=== PATIENT | male | born 1955 | race Caucasian/White ===

== ENCOUNTER 2023-06-16 09:21 | Emergency (ER) | payer OTHER ==
--- OUTSIDE RECORDS SUMMARY | 2023-06-16 09:23 | XMS REPORT | Continuity of Care Document ---
Author Name Unknown Address [address] [facility] [place] [address] [facility] thconnect Address [address] [facility] [place] [address] Care Team Providers Care Business Continuity Manager Name Role Phone ANATOLIY HAGEN Primary Care Physician Unavailab DR ANATOLIY Balderas Attending Clinician Unavailabl e [phone] Attending Clinician Unavailable IHDE_G Attending Clinician Unavailable DR ANATOLIY HAGEN Admitting Clinician Unavailabl e IHDE_G Admitting Clinician Unavailable Payers Payer Name Policy Type Policy Number Effective Date Expirati on Date Source [facility] - OP [id number] AARP/[facility] - OP [id number] A[employer]/[facility] - OP [id number] [facility] (MEDICARE REPLACEMENT/ADVANTAGE - PPO) [id number] Problems Condition Name Condition Details Condition Category Status Onset Date Resolution Date Last Treatment Date Treating Clinician Comments Source Diabetes mellitus Diabetes Mellitus Problem Active 04-14 00:00: 00 [facility] Allergies, Adverse Reactions, Alerts Allergy Name Allergy Type Status Severity Reaction(s) Onset Date Inactive Date Treating Clinician Comments Source Amoxicil david Allergy to substanc e Active [facility] Ampicill in Allergy to substanc e Active [facility] [place] INS Allergy to substanc e Active [facility] Social History Smoking Status Start Date Stop Date Source Unknown if ever smoked Former Smoker [facility] Medications Ordered Medication Name Filled Medication Name Start Date Stop Date Current Medication? Ordering Clinician Indication Dosage Frequency Signature (SIG) Comments Components Source Humulin N NPH U-100 Insulin (isophane susp) 100 unit/mL subcutaneou s INJECT 20 UNITS UNDER THE SKIN EVERY DAY Humulin N NPH U-100 Insulin (isophane susp) 100 unit/mL subcutaneou s INJECT 20 UNITS UNDER THE SKIN EVERY DAY No Humulin N NPH U-100 Insulin (isophane susp) 100 unit/mL subcutaneo us INJECT 20 UNITS UNDER THE SKIN EVERY DAY [facility] isosorbide mononitrate ER 30 mg tablet,exte nded release 24 hr TAKE 1 TABLET BY MOUTH EVERY DAY isosorbide mononitrate ER 30 mg tablet,exte nded release 24 hr TAKE 1 TABLET BY MOUTH EVERY DAY No isosorbide mononitrat e ER 30 mg tablet,ext ended release 24 hr TAKE 1 TABLET BY MOUTH EVERY DAY [facility] Vital Signs Vital Name Observation Time Observation Value Comments S ource BP Diastolic 2021-04-14 00:00:00 72 mm[Hg] [facility] Height 2021-04-14 00:00:00 67 [in_i] [facility] BMI (Body Mass Index) 2021-04-14 00:00:00 28.5 kg/m2 [facility] BP Systolic 2021-04-14 00:00:00 126 mm[Hg] [facility] Body Weight 2021-04-14 00:00:00 182.1 [lb_av] [facility] Plan of Care Planned Activity Planned Date Details Comments Source Diagnostic Test Pending 2021-04-14 00:00:00 noninvasive colorectal cancer DNA + occult blood screening, QL, stool [code = noninvasive colorectal cancer DNA + occult blood screening, QL, stool] [facility] Future Scheduled Test ALBUMIN(SERUM) [code = 91125-9] Future Scheduled Test BASIC PANEL [code = 66738-3] Future Scheduled Test MAGNESIUM [code = 72950-5] Future Scheduled Test TSH [code = 20696-1] Future Scheduled Test URIC ACID [code = 3084-1] Future Scheduled Test CREATININE-UR [code = 2160-0] Future Scheduled Test PROTEIN-URINE [code = 2885-2] Encounters Start Date/Time End Date/Time Encounter Type Admission Type Attending [facility] Facility Care Department Encounter ID Source 2022-08-04 07:43:59 Outpatient ANATOLIY HAGEN [id number] [facility] [id number] [facility] 2022-03-11 09:12:26 Outpatient ANATOLIY HAGEN [id number] [facility] [id number] [facility] 2021-12-10 09:50:37 Outpatient ANATOLIY HAGEN [id number] [facility] [id number] [facility] 2021-10-01 10:43:34 Outpatient ANATOLIY HAGEN [id number] [facility] [id number] [facility] 2021-07-22 08:05:59 Outpatient ANATOLIY HAGEN [id number] [facility] [id number] [facility] 2023-04-06 07:30:00 2023-04-06 07:30:00 Outpatient ANATOLIY HUNT [id number] [facility] [id number] [facility] 2023-04-06 07:30:00 2023-04-06 07:30:00 Outpatient [id number] 2023-04-06 07:30:00 2023-04-06 07:30:00 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 04/06/2023 SNOMED-CT 1.3.6.1.4 .[id number] 1.3.6.1.4.1 .09120 [id number] 2023-01-06 07:46:00 2023-01-06 07:46:00 Outpatient ANATOLIY HUNT [id number] [facility] [id number] [facility] 2023-01-06 07:46:00 2023-01-06 07:46:00 Outpatient [id number] 2022-09-29 07:53:00 2022-09-29 07:53:00 Outpatient ANATOLIY HUNT [id number] [facility] [id number] [facility] 2022-08-04 07:48:00 2022-08-04 07:48:00 Outpatient ANATOLIY HUNT [id number] [facility] [id number] [facility] 2022-05-10 08:55:00 2022-05-10 08:55:00 Outpatient ANATOLIY HUNT [id number] [facility] [id number] [facility] 2022-03-11 09:15:00 2022-03-11 09:15:00 Outpatient ANATOLIY HUNT [id number] [facility] [id number] [facility] 2021-12-10 09:51:00 2021-12-10 09:51:00 Outpatient ANATOLIY HUNT [id number] [facility] [id number] [facility] 2021-12-10 09:51:00 2021-12-10 09:51:00 Outpatient [id number] 2021-12-10 09:51:00 2021-12-10 09:51:00 Hypertensi ve chronic kidney disease with stage 1 through stage 4 chronic k 12/10/2021 SNOMED-CT 1.3.6.1.4 .[id number] 1.3.6.1.4.1 .11662 [id number] 2021-10-01 10:44:00 2021-10-01 10:44:00 Outpatient ANATOLIY HUNT [id number] [facility] [id number] [facility] 2021-07-22 08:07:00 2021-07-22 08:07:00 Outpatient ANATOLIY HUNT [id number] [facility] [id number] [facility] 2021-04-14 12:02:00 2021-04-14 12:02:00 Outpatient IHDE_G [facility] [id number] [facility] 2021-04-14 00:00:00 2021-04-14 00:00:00 Luis Buck MD: [address] [place] [id number] , Ph. [phone] [facility] General surgery [id number] [facility] 2021-04-09 04:42:00 2021-04-09 04:42:00 Outpatient IHDE_G [facility] [id number] [facility] Results Test Description Test Time Test Comments Results Result Co mments Source URIC [id number] 10:03:00* Test Item Value Reference Range Interpretation Comme nts URIC ACID (test code = 3084-1) 5.6 mg/dL 2.6-7.2 [id number] 10:03:00* Test Item Value Reference Range Interpretation Comme nts PHOSPHORUS (test code = 2777-1) 3.5 mg/dL 2.5-4.9 GLYCO [id number] 10:03:00* Test Item Value Reference Range Interpretation Comme nts GLYCO HGB (test code = 3432-2) 8.8 % 4.2-6.5 H [id number] 10:03:00* Test Item Value Reference Range Interpretation Comme nts TSH (test code = 63250-7) 1.38 uIU/mL 0.35-3.74 ALBUMIN(SERUM)2021-12-10 10:03:00* Test Item Value Reference Range Interpretation Comme nts ALBUMIN (test code = ALBUMIN) 3.5 g/dL 3.4-5 CBC W/AUTO [id number] 10:03:00* Test Item Value Reference Range Interpretation Comme nts WBC (test code = 6690-2) 5.1 K/uL 4.1-11 RBC (test code = 82714-8) 3.84 M/uL 4.2-5.8 L HEMOGLOBIN (test code = 717-9) 12.9 g/dL 13.4-17.4 L HEMATOCRIT (test code = 37366-9) 38.1 % 40-52 L MCV (test code = 787-2) 99 fL 82-96 H MCH (test code = 785-6) 33.6 pg 27-33 H MCHC (test code = MCHC) 34 g/dL 32-35 RDW (test code = 788-0) 12.1 % 11.6-16 PLATELETS (test code = 777-3) 258 K/uL 135-367 MPV (test code = 18280-7) 8.6 fL 6.9-9.8 %NEUT (test code = 770-8) 44.7 % 42.2-75.2 %LYMPH (test code = 736-9) 45 % 20-51 %MONO (test code = 5905-5) 6 % 2-15 %EOS (test code = 85318-2) 4 % 0-10 %BASO (test code = 31638-5) 1 % 0-2 MANUAL DIFF (test code = MAN UAL DIFF) NOT INDICATED RBC MORPH (test code = 6742-1) NOT INDICATED BASIC [id number] 10:03:00* Test Item Value Reference Range Interpretation Comme nts SODIUM (test code = 2951-2) 139 mmol/L 136-145 POTASSIUM (test code = POTASSIUM) 5.0 mmol/L 3.5-5.1 CHLORIDE (test code = 2075-0) 106 mmol/L 98-107 CO2 (test code = 1963-8) 25.7 mmol/L 21-32 ANION GAP (test code = ANION GAP) 7 GLUCOSE (test code = 2345-7) 196 mg/dL 74-106 H BUN (test code = 3091-6) 27 mg/dL 5-27 CREATININE (test code = 2160-0) 1.81 mg/dL 0.6-1.3 H BUN/CREAT (test code = BUN/CREAT) 15 CALCIUM (test code = 00904-7) 8.9 mg/dL 8.5-10.1 AGE (test code = AGE) 66 yrs AFR AMER GFR (test code = AF R AMER GFR) 46 mL/min NON-AA GFR (test code = NON- AA GFR) 38 mL/min CALCIUM [id number] 10:03:00CALCIUM, IONIZED 4.82 4.70-5.90URINALYSIS 2021-12-10 09:57:00SPEC SOURCE: CLEAN CATCH COLOR Yellow NORMAL: Straw 5778-6 LOINC CLARITY Clear NORMAL: Clear 5767-9 LOINC SPEC GRAVITY 1.025 1.005 - 1.020 5811-5 LOINC A pH 6.5 5.5 - 7.5 5803-2 LOINC GLUCOSE 1+NORMAL: Negative 5792-7 LOINC A BILIRUBIN Negative NORMAL: Negative 5770-3 LOINC KETONE Negative NORMAL: Negative 2514-8 LOINC PROTEIN 3+ NORMAL: Negative 67041-2 LOINC A NITRITE Negative NORMAL:Negative 5802-4 LOINC BLOOD Trace-lysed NORMAL: Negative 62785-9 LOINC LEUK EST Negative NORMAL: Negative 5799-2 LOINC UROBILINOGEN 0.2 0.2 - 1.0 mg/dL 61505-8 LOINC MICROSCOPIC See Below WBC None Seen NORMAL: None Seen 5821-4 LOINC RBC 1 - 3 NORMAL: None Seen 19502-0 LOINC EPITHELIAL Rare NORMAL: None Seen BACTERIA Rare/hpf NORMAL: None Seen 71468-3 LOINC MUCOUS NORMAL: None Seen 8247-9 LOINC CASTS CRYSTALS TRICHOMONAS NORMAL: None Seen 42346-3 LOINC YEAST NORMAL: None Seen 43026-8 LOINC SPERM NORMAL: None Seen 76275-1 LOINC CULTURE? Not Indicated
[2023-06-16 10:10] LABS: Absolute Basophils 0.1 K/uL (0-0.5); Absolute Eosinophils 0.1 K/uL (0-0.5); Absolute Lymphocytes (CBC) 1.3 K/uL (0.7-4.9); Absolute Monocytes 0.6 K/uL (0.1-1.3); Absolute Neutrophil 4.7 K/uL (1.8-8.0); Basophils % 1.2 % (0-1.3); Eosinophils % 1.4 % (0-4.4); Hematocrit 36.6 % (39.6-49.0); Hemoglobin 12.2 g/dL (13.6-17.9); Lymphocytes % 19.3 % (15.3-44.8); MCH 32.4 pg (27.0-35.0); MCHC 33.5 g/dL (32.0-36.0); MCV 96.9 fL (80-100); MPV 7.7 fL (7.6-11.3); Monocytes % 8.4 % (3.3-12.3); Neutrophils % 69.7 % (41.7-73.7); Platelets 285 thou/uL (152-406); RBC Red Blood Cell Count 3.78 M/uL (4.33-5.43); Red Cell Distribution Width 14.9 % (12.1-15.2)
--- NOTE | 2023-06-16 10:19 | RAD REPORT ---
EXAM DESCRIPTION: RAD - Chest Single View - 06/16/2023 10:05 am CLINICAL HISTORY: near syncope COMPARISON: No comparisons FINDINGS: Lines: None. Lungs: No evidence of edema or pneumonia. Pleural: No significant pleural effusions or pneumothorax. Cardiac: The heart size is within normal limits. Mediastinum: Within normal limits. Bones: No acute fractures. Other: None IMPRESSION: No acute cardiopulmonary disease.
[2023-06-16 10:24] LABS: PT Prothrombin Time 11.8 SECONDS (9.5-12.5); PTT, Activated Partial Thromb 31.6 SECONDS (24.3-36.9); Protime INR 1.07
[2023-06-16 10:30] LABS: SARS-CoV-2 Antigen CONTROL BLUE LINE VIS/BG OK; SARS-CoV-2 Antigen Rapid Res Negative (Negative)
[2023-06-16 10:31] LABS: Albumin 2.8 g/dL (3.4-5.0); Albumin/Globulin Ratio 0.8 (1.1-1.8); Bilirubin Direct 0.2 mg/dL (0-0.2); Bilirubin Indirect, Calculated 0.2 mg/dL (0.2-0.8); Bilirubin Total 0.4 mg/dL (0.2-1.0); Globulin 3.4 g/dL (2.3-3.5); Magnesium 1.9 mg/dL (1.6-2.4); Protein, Total 6.2 g/dL (6.4-8.2); Troponin High Sensitivity 11.6 pg/mL (<58.9)
--- NOTE | 2023-06-16 10:54 | RAD REPORT ---
EXAM DESCRIPTION: CT - Head Brain Wo Cont - 06/16/2023 10:45 am CLINICAL HISTORY: near syncope COMPARISON: No comparisons TECHNIQUE: All CT scans are performed using dose optimization technique as appropriate and may inclu de automated exposure control or mA/KV adjustment according to patient size. FINDINGS: No intracranial hemorrhage, hydrocephalus or extra-axial fluid collection.No areas of brai n edema or evidence of midline shift. Mild cerebral atrophy. The paranasal sinuses and mastoids are clear. The calvarium is intact. IMPRESSION: No acute intracranial abnormality.
--- NOTE | 2023-06-16 10:59 | RAD REPORT ---
EXAM DESCRIPTION: CTAbdomen Pelvis Wo Contrast - 06/16/2023 10:45 am CLINICAL HISTORY: near syncope;Abd pain COMPARISON: No comparisons TECHNIQUE: CT of the abdomen and pelvis was performed. All CT scans are performed using dose optimization technique as appropriate and may include automated exposure control or mA/KV adjustment according to patient size. FINDINGS: Lower chest: Coronary calcifications. Moderate hiatal hernia. Liver: No acute abnormality or suspicious lesions. Biliary: Cholelithiasis. No CT is acute cholecystitis. Stomach: No significant focal abnormality. Duodenum: No significant focal abnormality. Pancreas: No significant abnormality. Spleen: No significant abnormality. Adrenal: No suspicious lesions. Kidney/ureter: No hydronephrosis. 2 mm stone in the interpolar aspect of the right kidney. Retroperitoneum: No retroperitoneal adenopathy. Vascular: No aneurysm. Atherosclerosis. Bowel: Mild rectal wall thickening. Moderate stool in the colon. Normal appendix.. Peritoneum: No ascites or free air. Bladder: Grossly unremarkable. Reproductive: No adnexal masses. Bones: Grade 1 anterolisthesis of L4 on L5. Remote appearing T10 compression fracture. Other: n/a IMPRESSION: No definite acute intra-abdominal or pelvic finding. Nonspecific rectal wall thickening could reflect a mild proctitis. Moderate colonic stool which would suggest constipation. No bowel obs truction. Normal appendix. Moderate hiatal hernia.
--- NOTE | 2023-06-16 12:29 | EDPHYS ---
Physician Documentation [facility] Name: Parker Huber Age: 67 yrs Sex: Male : 1955 Arrival Date: 06/16/2023 Time: 09:21 Bed 19 Private MD: ED Physician Maximino Prasad HPI: 06/15 10:20 This 67 yrs old Male presents to ER via EMS with complaints of near syncope. rn 10:20 The patient has experienced near-syncope. Onset: The symptoms/episode began/occurred rn just prior to arrival. Duration: This was a single episode. Associated injury: The patient did not suffer any apparent associated injury. Current symptoms: Currently, the patient is not experiencing any symptoms. The patient has not experienced similar symptoms in the past. Patient reports at work, was bending down and lifting a lot of things, felt lightheaded, was helped to a chair, no full syncopal episode. Patient noted to have normal glucose per EMS. No trauma noted. Denies any preceding chest pain or shortness of breath. No abdominal pain or back pain. No medication changes. Patient feeling better already.. Historical: - Allergies: 09:34 PENICILLINS; nj1 - PMHx: 09:27 Diabetes mellitus; Hypertensive disorder; Kidney disease; nj1 - Immunization history:: Client reports having NOT received the Covid vaccine. - Infectious Disease History:: Denies. - Social history:: Smoking status: Patient/guardian denies using tobacco. - Family history:: not pertinent. - Hospitalizations: : No recent hospitalization is reported. ROS: 10:20 Constitutional: Negative for fever, chills, and weight loss, Eyes: Negative for injury, rn pain, redness, and discharge, Neck: Negative for injury, pain, and swelling, Cardiovascular: Negative for chest pain, palpitations, and edema, Respiratory: Negative for shortness of breath, cough, wheezing, and pleuritic chest pain, Abdomen/GI: Negative for abdominal pain, nausea, vomiting, diarrhea, and constipation, Back: Negative for injury and pain, MS/Extremity: Negative for injury and deformity, Skin: Negative for injury, rash, and discoloration, Neuro: Negative for headache, weakness, numbness, tingling, and seizure, Exam: 10:20 Constitutional: This is a well developed, well nourished patient who is awake, alert, rn and in no acute distress. Head/Face: Normocephalic, atraumatic. ENT: Dry mucous membranes Neck: No midline cervical tenderness Chest/axilla: No rib tenderness or crepitus Cardiovascular: Regular rate and rhythm. No pulse deficits. Respiratory: Speaking full sentences, unlabored. Abdomen/GI: Soft, nontender, nondistended. No ecchymosis MS/ Extremity: Pulses equal, no cyanosis. Neurovascular intact. Full, normal range of motion. Equal circumference. Neuro: Awake and alert, GCS 15, oriented to person, place, time, and situation. Cranial nerves II-XII grossly intact. Motor strength 5/5 in all extremities. Sensory grossly intact. 10:34 ECG was reviewed by the Attending Physician. rn Vital Signs: 09:17 BP 102 / 72; Pulse 79; Resp 16; Temp 98.1(O); Pulse Ox 99% on R/A; Weight 74.84 kg; nj1 Height 5 ft. 7 in. ; 10:25 BP 158 / 88; Pulse 84; Resp 18; Pulse Ox 99% on R/A; nj1 12:09 BP 120 / 63; Pulse 65; Resp 20; Pulse Ox 93% on R/A; nj1 12:40 BP 150 / 86; Pulse 70; Resp 18; Pulse Ox 100% on R/A; nj1 09:17 Body Mass Index 25.84 (74.84 kg, 170.18 cm) nj MDM: 09:25 Patient medically screened. rn 12:26 Differential Diagnosis: cardiac arrhythmia, emotional response, idiopathic syncope, rn vasovagal episode, Hyperglycemia, dehydration, orthostatic hypotension. Data reviewed: vital signs, nurses notes, lab test result(s), EKG, radiologic studies, CT scan, plain films, and as a result, I will discharge patient. Care significantly affected by the following chronic conditions: Diabetes, Chronic Kidney Disease. Counseling: I had a detailed discussion with the patient and/or guardian regarding the historical points, exam findings, and any diagnostic results supporting the discharge/admit diagnosis, lab results, radiology results, the need for outpatient follow up, to return to the emergency department if symptoms worsen or persist or if there are any questions or concerns that arise at home. Response to treatment: the patient's symptoms have markedly improved after treatment, the patient's condition has returned to base line, the patient is now symptom free, patient is well hydrated. and as a result, I will discharge patient. Special discussion: I discussed with the patient/guardian in detail that at this point there is no indication for admission to the hospital. It is understood, however, that if the symptoms persist or worsen the patient needs to return immediately for re-evaluation. ED course: No acute findings and workup. Patient states he has known chronic kidney disease with 30% function. CT head and abdomen without acute findings. Patient with known right renal stone. Has cholelithiasis but no cholecystitis. No aneurysm. Patient feels much better after IV hydration and rest. Glucose 379, was in 100s but after got lightheaded he had candy and soda to raise his sugar which would explain that. I have personally reviewed all of the results, including but not limited to blood tests and imaging deemed necessary to safely discharge this patient at this time. All results given to and printed out for patient. I personally went over all the results with the patient and answered all questions. Patient will follow-up with PCP and or specialist as discussed. Return precautions given and understood.. 06/15 09:26 Order name: Basic Metabolic Panel; Complete Time: 11:06/15 09:26 Order name: CBC with Diff; Complete Time: 10:20 06/15 09:26 Order name: Hepatic Function; Complete Time: 11:56 06/15 09:26 Order name: Magnesium; Complete Time: 11:56 06/15 09:26 Order name: Protime (+inr); Complete Time: 11:56 06/15 09:26 Order name: Ptt, Activated; Complete Time: 11:56 06/15 09:26 Order name: Troponin High Sensitivity; Complete Time: 11:56 06/15 09:26 Order name: BNP; Complete Time: 11:56 06/15 09:32 Order name: Strep rn 06/15 09:32 Order name: SARS RAPID; Complete Time: 11:56 06/15 09:32 Order name: Flu; Complete Time: 11:56 06/15 10:28 Order name: Throat Culture EDMS 06/15 09:26 Order name: CT Head Brain wo Cont; Complete Time: 11:56 06/15 09:26 Order name: Chest Single View XRAY; Complete Time: 10:20 rn 06/15 10:35 Order name: Abdomen ; Complete Time: 11:56 EDMS 06/15 09:26 Order name: Cardiac monitoring; Complete Time: :33 rn 06/15 09:26 Order name: EKG - Nurse/Tech; Complete Time: 09:46 rn 06/15 09:26 Order name: IV Saline Lock; Complete Time: 09:33 rn 06/15 09:26 Order name: Labs collected and sent; Complete Time: 09:46 rn 06/15 09:26 Order name: NPO; Complete Time: :34 rn 06/15 09:26 Order name: O2 Per Protocol; Complete Time: :34 rn 06/15 09:26 Order name: O2 Sat Monitoring; Complete Time: :34 rn EC:34 Rate is 76 beats/min. Rhythm is regular. QRS [place] is Normal. IA interval is normal. QRS rn interval is normal. QT interval is normal. No Q waves. T waves are Normal. No ST changes noted. Clinical impression: NSR w/ Non-specific ST/T Changes. Interpreted by me. Reviewed by me. Administered Medications: : Drug: NS 0.9% IV 500 ml IV at bolus once Route: IV; Rate: bolus; Site: right forearm; nj1 10:25 Follow up: Response: No adverse reaction; IV Status: Completed infusion; IV Intake: nj1 500ml Disposition Summary: 06/16/23 12:28 Discharge Ordered Notes: Location: Home rn Problem: new rn Symptoms: have improved rn Condition: Stable rn Diagnosis - Near Syncope rn - Hyperglycemia, unspecified rn - Dehydration rn Followup: rn - With: Private Physician - When: As needed - Reason: Recheck today's complaints, Re-evaluation by your physician Discharge Instructions: - Discharge Summary Sheet rn - Dehydration, Adult rn - Hyperglycemia rn - Near-Syncope rn - Blood Glucose Monitoring, Adult rn Forms: - Medication Reconciliation Form rn - Thank You Letter rn - Antibiotic morning caregiver - Prescription Opioid Use rn - Patient Portal Instructions rn - Leadership Thank You Letter rn Signatures: Dispatcher [employer] EDVA Maximino Prasad MD MD rn Jaco, Norma, RN RN nj1 Corrections: (The following items were deleted from the chart) 09: 09:26 BASIC METABOLIC PANEL+C.LAB.BRZ ordered. EDVA EDMS 09: 09:26 CBC+H.LAB.BRZ ordered. EDMS EDMS 09: 09:26 HEPATIC FUNCTION+C.LAB.BRZ ordered. EDMS EDMS 09: 09:26 MAGNESIUM+C.LAB.BRZ ordered. EDMS EDMS 09: 09:26 PROTIME (+INR)+COAG.LAB.BRZ ordered. EDMS EDMS 09: 09:26 PTT, ACTIVATED+COAG.LAB.BRZ ordered. EDMS EDMS 09: 09:26 Troponin High Sensitivity+C.LAB.BRZ ordered. EDMS EDMS 09: 09:26 Urinalysis+U.LAB.BRZ ordered. EDMS EDMS 09: 09:26 PROBNP+C.LAB.BRZ ordered. EDMS EDMS 09: 09:26 Head Brain Wo Cont+CT.RAD.BRZ ordered. EDMS EDMS 09: 09:27 Chest Single View+RAD.RAD.BRZ ordered. EDMS EDMS 09: 09:27 PMHx: History of urinary tract infection; nj1 nj1 09:33 09:33 Abdomen Pelvis W Con+CT.RAD.BRZ ordered. EDMS EDMS
--- NOTE | 2023-06-16 12:29 | ER ---
Nurse's Notes [facility] Name: Parker Huber Age: 67 yrs Sex: Male : 1955 Arrival Date: 06/16/2023 Time: 09:21 Bed 19 Private MD: Diagnosis: Near Syncope;Hyperglycemia, unspecified;Dehydration Presentation: 06/15 09:17 Chief complaint: EMS states: Syncopal episode. Pt was not feeling well, lay down and nj1 pass out. Pt awake and alert upon EMS arrival. Positive orthostatic vital signs. IVF initiated. 09:17 Method Of Arrival: EMS: [facility] nj1 09:17 Coronavirus screen: Vaccine status: Patient reports being unvaccinated. Ebola Screen: nj1 Patient denies travel to an Ebola-affected area in the 21 days before illness onset. Initial Sepsis Screen: Does the patient meet any 2 criteria? No. Patient's initial sepsis screen is negative. Does the patient have a suspected source of infection? No. Patient's initial sepsis screen is negative. Risk Assessment: Do you want to hurt yourself or someone else? Patient reports no desire to harm self or others. Onset of symptoms was June 16, 2023. 09:17 Acuity: GERMAN 3 nj1 09:17 Care prior to arrival: Medication(s) given: Normal saline infusion, 200 ml IV nj1 initiated. 20 GA, in the right forearm, Glucose check: 269. Historical: - Allergies: 09:34 PENICILLINS; nj1 - PMHx: 09:27 Diabetes mellitus; Hypertensive disorder; Kidney disease; nj1 - Immunization history:: Client reports having NOT received the Covid vaccine. - Infectious Disease History:: Denies. - Social history:: Smoking status: Patient/guardian denies using tobacco. - Family history:: not pertinent. - Hospitalizations: : No recent hospitalization is reported. Screenin:31 [facility] ED Fall Risk Assessment (Adult) History of falling in the last 3 months, nj1 including since admission Yes- fall prone (multiple falls) (3 pts) Confusion or Disorientation No (0 pts) Intoxicated or Sedated No (0 pts) Impaired Gait No (0 pts) Mobility Assist Device Used No (0 pt) Altered Elimination No (0 pt) Score/Fall Risk Level 3 or more points = High Risk Oriented to surroundings, Maintained a safe environment, Educated pt \T\ family on fall prevention, incl call for assistance when getting out of bed, Assessed \T\ reinforced patient's understanding of fall precautions, Provided non-skid footwear, Hourly rounding (assess needs \T\ fall precautionary measures) done, Remained w/in arm's length of patient and in sight while toileting, Remained with patient while ambulating. Abuse screen: Denies threats or abuse. Denies injuries from another. Nutritional screening: No deficits noted. Tuberculosis screening: No symptoms or risk factors identified. Assessment: 09:29 General: Appears in no apparent distress. comfortable, Behavior is calm, cooperative, nj1 appropriate for age. Pain: Denies pain. Neuro: Level of Consciousness is awake, alert, obeys commands, Oriented to person, place, time, situation, Moves all extremities. Speech is normal, Facial symmetry appears normal. Cardiovascular: Patient's skin is warm and dry. Respiratory: Airway is patent Respiratory effort is even, unlabored. 09:47 Cardiovascular: Rhythm is regular. nj1 10:25 Reassessment: Patient appears in no apparent distress at this time. Patient and/or nj1 family updated on plan of care and expected duration. Pain level reassessed. Patient is alert, oriented x 3, equal unlabored respirations, skin warm/dry/pink. Patient states feeling better. Patient states symptoms have improved. 12:09 Reassessment: Patient appears in no apparent distress at this time. Patient and/or nj1 family updated on plan of care and expected duration. Pain level reassessed. Patient is alert, oriented x 3, equal unlabored respirations, skin warm/dry/pink. 12:40 Reassessment: Patient appears in no apparent distress at this time. Patient is alert, nj1 oriented x 3, equal unlabored respirations, skin warm/dry/pink. Patient states feeling better. Patient states symptoms have improved. Vital Signs: 09:17 BP 102 / 72; Pulse 79; Resp 16; Temp 98.1(O); Pulse Ox 99% on R/A; Weight 74.84 kg; nj1 Height 5 ft. 7 in. ; 10:25 BP 158 / 88; Pulse 84; Resp 18; Pulse Ox 99% on R/A; nj1 12:09 BP 120 / 63; Pulse 65; Resp 20; Pulse Ox 93% on R/A; nj1 12:40 BP 150 / 86; Pulse 70; Resp 18; Pulse Ox 100% on R/A; nj1 09:17 Body Mass Index 25.84 (74.84 kg, 170.18 cm) ok1 ED Course: 09:24 Patient arrived in ED. nj1 09:25 Maximino Prasad MD is Attending Physician. rn 09:27 Triage completed. nj1 09:28 Arm band placed on left wrist. nj1 09:32 Patient has correct armband on for positive identification. Bed in low position. Call nj1 light in reach. Side rails up X 1. Provided Education on: call light, fall precautions. 09:33 Aislinn Romero, JEROME is Primary Nurse. nj1 09:46 Basic Metabolic Panel Sent. 6 09:46 CBC with Diff Sent. bc6 09:46 Hepatic Function Sent. bc6 09:46 Magnesium Sent. bc6 09:46 Protime (+inr) Sent. bc6 09:46 Ptt, Activated Sent. bc6 09:46 Troponin High Sensitivity Sent. bc6 09:46 Initial lab(s) drawn, by me, sent to lab. EKG done, by ED staff, reviewed by Maximino Prasad MD COVID swab sent to lab. Flu and/or RSV swab sent to lab. Maintain EMS IV. Dressing intact. Good blood return noted. Site clean \T\ dry. IV is intact. 10:07 Chest Single View XRAY In Process Unspecified. EDMS 10:46 CT Head Brain wo Cont In Process Unspecified. EDMS 10:47 Abdomen In Process Unspecified. EDMS 12:40 No provider procedures requiring assistance completed. IV discontinued, intact, nj1 bleeding controlled, Pressure dressing applied. Administered Medications: 09:33 Drug: NS 0.9% IV 500 ml IV at bolus once Route: IV; Rate: bolus; Site: right forearm; nj1 10:25 Follow up: Response: No adverse reaction; IV Status: Completed infusion; IV Intake: nj1 500ml Medication: 12:40 VIS not applicable for this client. nj1 Intake: 10:25 IV: 500ml; Total: 500ml. nj Outcome: 12:28 Discharge ordered by . rn 12:40 Discharged to home ambulatory, with significant other, [facility] 12:40 Condition: stable 12:40 Discharge instructions given to patient, Instructed on discharge instructions, follow up and referral plans. safety practices, Demonstrated understanding of instructions, follow-up care, 12:43 Patient left the ED. nj1 Signatures: Dispatcher [employer] Maximino Hdz MD MD rn [place], [facility] Aislinn Romero RN RN nj1 Corrections: (The following items were deleted from the chart) 09:28 09:27 PMHx: History of urinary tract infection; nj1 nj1
[2023-06-16 14:36] VITALS: BP 150/86; O2SAT 100
--- NOTE | 2023-06-17 13:40 | EKG ---
Test Date: 2023-06-16 Test Time: 09:41:56 Glass Glazier: QUINN MEASUREMENT RESULTS: Intervals: Rate: 76 CO: 178 QRSD: 92 QT: 414 QTc: 465 [place]: P: 69 CO: 178 QRS: 44 T: 82 INTERPRETIVE STATEMENTS: Normal sinus rhythm Septal infarct, age undetermined Abnormal ECG No previous ECG available for comparison Electronically Signed On 06-17-23 13:38:03 CDT by Thang uZluaga
== END 2023-06-16 12:43 | disposition home or self-care (01) ==
LOC: ER 09:21
DX: E11.65 Type 2 diabetes mellitus with hyperglycemia (principal); E86.0 Dehydration; I10 Essential (primary) hypertension; Z88.0 Allergy status to penicillin; Z28.310 Unvaccinated for COVID-19; Z11.52 Encounter for screening for COVID-19
CPT/HCPCS: 36415; 70450; 71045; 74176; 80048; 80076; 83735; 83880; 84484; 85025; 85610; 85730; 87070; 87081; 87804; 87811; 93005; 96360; 99284